=== PATIENT | male | born 1965 | race Caucasian/White ===

== ENCOUNTER 2020-07-29 21:04 | Emergency (ER) | payer BC ==
[~2020-07-29 21:04] MED LIST: AMLODIPINE BESYL5 MG PO; ASPIRIN 325MG325 MG PO; BENTYL 20MG TAB20 MG PO; DOXAZOSIN MESYLA8 MG PO; FENOFIBRATE160 MG PO; GLUCOPHAGE500 MG PO; KRILL OIL500 MG PO; LOSARTAN POTASS50 MG PO; METOPROLOL SUC100 MG PO; NIACIN500 M1 PO; PRAVASTATIN SOD10 MG PO; PROTONIX40 MG PO; SYNTHROID175 MCG PO; VITAMIN D31250 MCG PO; ZOFRAN ODT 4 MG4 MG SL; ZOFRAN4 MG PO
== END 2020-07-30 01:00 | disposition home or self-care (01) ==
LOC: ER1 21:04
DX: J02.9 Acute pharyngitis, unspecified (principal); K21.9 Gastro-esophageal reflux disease without esophagitis; I11.9 Hypertensive heart disease without heart failure
CPT/HCPCS: 87081; 87880; 96372; 99283; J1100; J1885

== ENCOUNTER → 2020-08-10 | Outpatient (CLI) | payer BC | LOC: KOH-I 14:49 | DX: R22.1 Localized swelling, mass and lump, neck (principal) | CPT/HCPCS: 76536 ==

== ENCOUNTER 2020-12-15 20:12 | Emergency (ER) | payer BC ==
[~2020-12-15] VITALS: Ht 182.9 cm; Wt 129.3 kg
[2020-12-15 22:38] LABS: HEMOGLOBIN 12.9 gm/dl (14.0-17.5); RED BLOOD COUNT 4.33 M/UL (4.20-5.50); WHITE BLOOD COUNT 4.3 K/UL (4.5-11.0)
[2020-12-15 22:57] LABS: BUN/CREATININE RATIO 16 (0-10)
[2020-12-16] MEDS ORDERED: ZOFRAN ODT 4 MG4 MG GT (03:17)
[2020-12-16] MEDS ORDERED: DECADRON6 MG PO ×2 (03:17→07:04)
[2020-12-16] MEDS ORDERED: ASPIRIN81 MG PO (03:17)
== END 2020-12-16 09:00 | disposition home or self-care (01) ==
LOC: ER1 20:12
PROVIDERS: Physician Assistant
DX: Z23 Encounter for immunization (principal); U07.1 COVID-19; I10 Essential (primary) hypertension; E11.9 Type 2 diabetes mellitus without complications; E07.9 Disorder of thyroid, unspecified
CPT/HCPCS: 71045; 80053; 81001; 82550; 82553; 83690; 83735; 83874; 84484; 85025; 87077; 87086; 87186; 96374; 96375; 99284; C9113; J1100; J2405; M0243; Q9967; U0002

== ENCOUNTER → 2021-11-25 | Outpatient (CLI) | payer BC ==
[~2021-11-25] MED LIST changes: +ASPIRIN81 MG PO; +DECADRON6 MG PO; +ZOFRAN ODT 4 MG4 MG GT
== END ==
LOC: NM 07-30 09:00
DX: I25.10 Atherosclerotic heart disease of native coronary artery without angina pectoris (principal); Z00.00 Encounter for general adult medical examination without abnormal findings
CPT/HCPCS: 78452; 93017; A9502; J2785